=== PATIENT | male | born 1985 | race Caucasian/White ===

== ENCOUNTER 2018-03-24 06:27 | Emergency (ER) | payer MEDICAID, OTHER, SELFPAY ==
[~2018-03-24] VITALS: Ht 167.6 cm; Wt 75.0 kg
[2018-03-24 06:28] VITALS: BP 154/87
[2018-03-24] MEDS ORDERED: ADACEL/BOOSTRIX VACCINE (DIPHTH/PERTUSS/ACELL/TETANUS)0.5ML SYR (90715) IM ONE (07:00)
[2018-03-24] MEDS ORDERED: AUGM875T28 PO (07:13)
== END 2018-03-24 07:18 | disposition home or self-care (01) ==
LOC: M ED 06:27
DX: R20.8 Other disturbances of skin sensation (principal); L08.9 Local infection of the skin and subcutaneous tissue, unspecified; F17.200 Nicotine dependence, unspecified, uncomplicated